=== PATIENT | female | born 1940 | race Caucasian/White ===

== ENCOUNTER → 2020-12-03 16:26 | Outpatient (CLI) | payer MEDICARE, OTHER, SELFPAY | PROVIDERS: Visit Provider Nurse Practitioner Adult Health | DX: R30.0 Dysuria (principal) | CPT/HCPCS: 87077; 87086; 87088; 87186 ==

== ENCOUNTER → 2021-04-22 17:47 | Outpatient (CLI) | payer MEDICARE, OTHER, SELFPAY | PROVIDERS: Referring Provider Nurse Practitioner Adult Health; Visit Provider Nurse Practitioner Adult Health | DX: R30.0 Dysuria (principal) | CPT/HCPCS: 87086 ==

== ENCOUNTER 2021-04-26 21:45 | Emergency (ER) | payer MEDICARE, OTHER, SELFPAY ==
[2021-04-26 21:48] VITALS: BP 137/79; PULSE 89; RESP 22; TEMP 37.2; O2SAT 94; BMI 22.8
[2021-04-26 21:52] VITALS: BP 137/79; PULSE 91; RESP 20; TEMP 37.2; O2SAT 94
[2021-04-26 22:10] VITALS: TEMP 37
--- NOTE | 2021-04-26 22:11 | RAD_ITS ---
STUDY: X-RAY CHEST REASON FOR EXAM: Female, 81 years old. Fever and cough TECHNIQUE: Single AP portable view of the chest. COMPARISON: None. FINDINGS: EKG leads overlie the chest Lungs are expanded with patchy interstitial and airspace opacifications in both lung lozano. Findings could be seen with Covid pneumonia, multifocal pneumonitis, or drug interaction/toxicity Normal size heart. Normal mediastinum and krystyna. Normal visualized pulmonary arteries. Normal visualized aortic arch and descending thoracic aorta. There are diffuse degenerative changes of the visualized thoracic spine. Old healed left rib fractures There is no demonstrated abnormality of the visualized soft tissue structures of the upper abdomen. RAD/Chest 1 View (Portable) IMPRESSION: Patchy interstitial and airspace opacifications in both lung lozano, differential as described. Follow-up recommended to ensure resolution Electronically Signed: Feliz Garvin MD at 23:00 EDT , Service support ,
--- NOTE | 2021-04-26 22:36 | EDS_ITS ---
HPI History of Present Illness Chief Complaint: Cough Informant: patient, family and EMS Narrative Narrative: 81-year-old female presents to the emergency room stating she does not feel well. Patient called the ambulance tonight after a neighbor came over and checked on her and felt that she had stuff in her lungs and 103 fever. She feels fatigued. She states that she has no other symptoms. Patient took Advil around 1900 hrs. She did not receive a Covid vaccination. PFSH PFSH Medical History (Updated 04/26/21 @ 23:[address] Matthew Sloan DO) Hypertension Home Medications amitriptyline 10 mg PO QHS 04/26/21 [History Last Taken Unknown] estradiol VAGINAL 04/26/21 [History Last Taken Unknown] metoprolol succinate 25 mg PO QHS 04/26/21 [History Last Taken Unknown] Allergy/AdvReac Type Severity Reaction Status Date / Time No Known Allergies Allergy Verified 04/26/21 21:48 Social History (Updated 04/26/21 @ 22:[address] Matthew Sloan DO) Smoking Status: Never smoker substance use type: does not use ROS ROS ED ROS Narrative Generalized fatigue Constitutional Constitutional ED: Reports fever(s); Denies chills or weight loss Eyes Eyes: Denies change in vision or diplopia ENT ENT ED: Denies ear pain, rhinorrhea or sore throat Cardiovascular Cardiovascular: Denies chest pain, orthopnea, palpitations or racing heartbeat Respiratory/Chest Respiratory/Chest: Reports cough; Denies dyspnea or orthopnea Gastrointestinal Gastrointestinal: Denies abdominal pain, diarrhea, nausea or vomiting Genitourinary Genitourinary ED: Denies dysuria, hematuria or urinary frequency Musculoskeletal Musculoskeletal: Denies arthralgias or myalgias Integumentary Denies abscess or rash Neurologic Neurologic: Denies headache(s) or weakness Psychiatric Psychiatric: Denies anxiety, depression, suicidal ideation or suicidal thoughts Endocrine Endocrinology: Denies polydipsia, polyphagia or polyuria Allergic/Immunologic Allergic/Immunologic ED: Denies mouth swelling, tongue swelling or urticaria EXAM Physical Exam Const Vital Signs: 04/26/21 21:48 04/26/21 21:52 04/26/21 22:10 Temperature 98.9 F 98.9 F 98.6 F Temperature Source Oral Oral Oral Pulse Rate 89 91 Respiratory Rate 22 H 20 H Respiratory Effort Normal Respiratory Depth Normal Respiratory Pattern Normal Blood Pressure 137/79 H 137/79 H Blood Pressure Mean 98 98 Pulse Ox 94 94 Oxygen Delivery Method Room Air Room Air Positive well nourished and well developed General Appearance ED: well developed HEENT Reports normocephalic, head/scalp atraumatic and moist mucous membranes Eyes PERRL and EOMs intact bilaterally Neck no lymphadenopathy, supple and no JVD Resp normal respiratory effort and clear to auscultation bilaterally Cardio regular rate, regular rhythm and no murmurs GI normal to inspection, nondistended, normoactive bowel sounds and non-tender Palpation: soft Back/Spine no CVA tenderness and normal ROM Extremity normal to inspection General Extremety ED: Negative for edema General Extremity: Negative for edema Neuro oriented x3 and CN's II-XII intact bilaterally Sensorium / Orientation: alert Motor Exam: strength 5/5 throughout Psych mental status grossly normal Mood & Affect: Negative for depressed or tearful Skin no rashes or lesions noted and no wounds MDM MDM MDM Narrative Medical decision making narrative: My interpretation of the chest x-ray shows mild multifocal infiltrates. Her white count is 5.3. CMP negative. Covid test is positive. Patient would qualify for monoclonal antibodies given her age and her hypertension. Patient did not want to get the vaccine because it was too new. She will weigh getting the antibodies over the weekend and discuss with [facility] child care attendant when she calls. Patient is satting 95% on room air and has not become hypoxic with exertion Lab Data Attestation: I reviewed the patient's lab results. Labs: Laboratory Results - last 24 hr 04/26/21 04/26/21 22:20 22:20 WBC 5.3 RBC 3.59 L Hgb 11.6 L Hct 33.1 L MCV 92.2 MCH 32.3 H MCHC 35.0 RDW Std Deviation 39.6 RDW Coeff of [place] 11.6 Plt Count 130 L MPV 9.0 Immature Gran % (Auto) 0.600 Neut % (Auto) 76.2 H Lymph % (Auto) 16.7 L [place] % (Auto) 5.9 Eos % (Auto) 0.4 Baso % (Auto) 0.2 Absolute Neuts (auto) 4.0 Absolute Lymphs (auto) 0.88 Nucleated RBC % 0 Sodium 130 L Potassium 3.5 Chloride 96 L Carbon Dioxide 26.0 Anion Gap 8 BUN 11 Creatinine 0.60 Estim Creat Clear Calc 36.41 Est GFR (MDRD) Af Amer 123 Est GFR (MDRD) Non-Af 101 BUN/Creatinine Ratio 18.2 Glucose 128 H Calcium 8.2 L Total Bilirubin 0.30 AST 28 ALT 17 Alkaline Phosphatase 81 Total Protein 6.5 Albumin 3.0 L Globulin 3.5 Albumin/Globulin Ratio 0.9 Radiography Diagnostic Testing: Clinical Impression(s) from Imaging Studies Chest X-Ray 04/26/21 22:11 IMPRESSION: Patchy interstitial and airspace opacifications in both lung lozano, differential as described. Follow-up recommended to ensure resolution Electronically Signed: Feliz Garvin MD at 23:00 EDT , Service support , Discharge Plan Triage Chief Complaint: Cough Other Complaint: Fever ED Provider: Matthew Sloan Dx/Rx/DC Orders Clinical Impression: COVID-19 Instructions: Coronavirus Disease 2019 (COVID-19): Caring for Yourself or Others Prescriptions: No Action amitriptyline 10 mg tablet 10 mg PO QHS RF: 0 metoprolol succinate 25 mg tablet extended release 24 hr 25 mg PO QHS RF: 0 estradiol 0.01 % (0.1 mg/gram) cream VAGINAL RF: 0 Primary Care Provider: Kristopher Garcia Referrals: Kristopher Garcia MD [Primary Care Provider] - As Needed Disposition Disposition: Home, Self Care
[2021-04-26 22:43] LABS: Absolute Lymphocyte Count 0.88 X10^3/uL (0.83-4.51); Basophil# 0.01 X10^3/uL; Basophil% 0.2 % (0-1); Eosinophil# 0.02 X10^3/uL; Eosinophils% 0.4 % (0-5); Hematocrit 33.1 % (37-47); Hemoglobin 11.6 g/dL (12.0-15.0); Lymphocyte # 0.88 X10^3/ul (0.83-4.51); Lymphocyte % 16.7 % (19-41); Mean Corpuscular Hgb 32.3 pg (27.0-32.0); Mean Corpuscular Volume 92.2 fL (81-99); Monocyte# 0.31 X10^3/uL; Monocyte% 5.9 % (0-10); NRBC Flagged by Analyzer 0 % (0-5); Neutrophil # 4.02 X10^3/uL (2.7-7.7); Neutrophil % 76.2 % (47-70); Platelet Count 130 K/mm3 (150-450); RBC Distribution Width CV 11.6 % (11.6-14.6); RBC Distribution Width SD 39.6 fl (35.1-43.9); Red Blood Count 3.59 M/mm3 (4.2-5.4); White Blood Count 5.3 K/mm3 (4.4-11.0)
[2021-04-26 22:49] LABS: ALB/GLOB Ratio 0.9 RATIO (0.9-2.4); AST(SGOT) 28 U/L (15-37); Alanine Aminotransfer ALT/SGPT 17 U/L (13-56); Alkaline Phosphatase 81 U/L (45-117); Anion Gap 8 (5-15); BUN 11 mg/dL (7-18); BUN/Creat Ratio 18.2 RATIO (10-20); Calcium,Total 8.2 mg/dL (8.5-10.1); Chloride 96 mmol/L (98-107); EST Glomerular Filtration Rate 101 mL/min (>60); Est Glom Filt Rate - Afr Amer 123 mL/min (>60); Estimated Creatinine Clearance 36.41 ml/min; Globulin 3.5 g/dL (2.2-4.2); Glucose 128 mg/dL (74-106); Potassium 3.5 mmol/L (3.5-5.1); Protein, Total 6.5 g/dL (6.4-8.2); Sodium Level 130 mmol/L (136-145)
[2021-04-26 23:22] VITALS: BP 133/81; RESP 18; O2SAT 95
== END 2021-04-26 23:22 | disposition home or self-care (01) ==
PROVIDERS: Emergency Provider Emergency Medicine; PCP Orthopaedic Surgery
DX: R50.9 Fever, unspecified (principal); I10 Essential (primary) hypertension; Z79.899 Other long term (current) drug therapy
CPT/HCPCS: 71045; 80053; 85025; 87426; 99285; A4216

== ENCOUNTER 2021-05-03 12:20 | Outpatient (CLI) | payer MEDICARE, OTHER, SELFPAY ==
[2021-05-03 12:58] VITALS: BP 116/65; PULSE 82; RESP 16; TEMP 36.6; O2SAT 98; BMI 22.1
[2021-05-03] MEDS: 0.9% Saline Lock 10 ML Syringe IV (13:01)
[2021-05-03 13:40] VITALS: BP 122/71; PULSE 88; RESP 16; TEMP 36.6; O2SAT 98
[2021-05-03 14:35] VITALS: BP 128/74; PULSE 92; RESP 18; TEMP 36.6; O2SAT 97
== END 2021-05-03 14:40 | disposition home or self-care (01) ==
LOC: MS3OUT 12:21 → MS3 12:22
PROVIDERS: PCP Orthopaedic Surgery; Visit Provider Nurse Practitioner Adult Health
DX: Z23 Encounter for immunization (principal); U07.1 COVID-19
CPT/HCPCS: J7050; M0243; A4216; Q0244

== ENCOUNTER 2021-09-08 17:02 | Outpatient (CLI) | payer MEDICARE, OTHER, SELFPAY | END 2021-09-08 23:59 | disposition home or self-care (01) | PROVIDERS: PCP Orthopaedic Surgery; Referring Provider Urology; Visit Provider Urology | DX: N30.10 Interstitial cystitis (chronic) without hematuria (principal) | CPT/HCPCS: 87086 ==

== ENCOUNTER 2021-09-16 16:23 | Outpatient (CLI) | payer MEDICARE, OTHER, SELFPAY ==
--- NOTE | 2021-09-16 16:05 | CYSPIN_PTH ---
PATIENT: JORI BRANNON LOC: [facility] U#:[id number] AGE/SX: 81/F ROOM: RE09/16/[address]: Dr. Corwin Rangel MD : 1940 BED: DIS: 09/16/2021 SPEC #: [id number] RECD: 09/17/21 08:00 STATUS: GABRIEL ESCUDERO #: [id number] KHANH: 09/16/21 16:[address]: Corwin Rangel DEPT: CYTOLOGY RECD BY: Cynthia Benedict ENTERED: 09/17/21 08:00 SP TYPE: CYSPIN FL OTHR DR: Dr. Kristopher Garcia MD Tissues: Urine Procedures: Pap Stain (control) Special Stain Group II Cytospin Fluid HEADER OPERATION: Not noted PRE-OP DIAGNOSIS: Gross hematuria R31.0 TISSUE SUBMITTED: Urine for cytology DIAGNOSIS CYTOLOGY Urine for cytology (cytospin): Rare atypical urothelial cells noted. Acute inflammation. See comment. SJ:ansley 09/17/2021 COMMENT Clinical correlation and appropriate follow up are necessary. 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 CYTOLOGY STUDY Slides are reviewed. CYTOLOGY GROSS Received is 50 ml of bright yellow fluid labeled with the patient's name and and designated per the requisition as urine. Submitted for cytology preparation. / ansley 09/16/2021 TC:5 CPT: 24852
[2021-09-16 16:44] LABS: Cytology, Body Fluid / CSF SEE PATHOLOGY REPORT
== END 2021-09-16 23:59 | disposition home or self-care (01) ==
LOC: LABSPEC 16:25
PROVIDERS: PCP Orthopaedic Surgery; Referring Provider Urology; Visit Provider Urology
DX: R31.0 Gross hematuria (principal)
CPT/HCPCS: 88108; 88313

== ENCOUNTER → 2022-10-27 | Outpatient (CLI) | payer MEDICARE, SELFPAY ==
--- NOTE | 2022-10-27 | CYSPIN_PTH ---
PATIENT: JORI BRANNON LOC: [facility] U#:[id number] AGE/SX: 82/F ROOM: RE10/27/[address]: Dr. Francie Aguilar MD : 1940 BED: DIS: 10/27/2022 SPEC #: [id number] RECD: 10/27/22 15:00 STATUS: GABRIEL ESCUDERO #: [id number] KHANH: 10/27/22 00:[address]: Francie Aguilar DEPT: CYTOLOGY RECD BY: Luke Parisi ENTERED: 10/28/22 10:50 SP TYPE: CYSPIN FL OTHR DR: Dr. Bhavik Hull MD Tissues: Urine Procedures: Pap Stain (control) Special Stain Group II Cytospin Fluid HEADER OPERATION: Not noted PRE-OP DIAGNOSIS: Gross hematuria TISSUE SUBMITTED: Urine for cytology DIAGNOSIS CYTOLOGY Urine for cytology (cytospin): Atypical urothelial cells noted ([facility] Sofía System Category III. Marked acute inflammation. See comment. SJ:ansley 10/28/2022 COMMENT Red blood cells are also noted. The Sofía System for urine cytology diagnostic categorization was used in the evaluation of this case. Please make reference to previous specimen [id number]) urine for cytology with diagnosis of rare atypical urothelial cells noted. Case has been reviewed in consultation with Dr. Huertas who concurs with the above diagnosis. IDC:AM CYTOLOGY STUDY Slides are reviewed. CYTOLOGY GROSS Received is 30 ml of hazy yellow fluid labeled with the patient's name and and designated per the requisition as urine. Submitted for cytology preparation. / ansley 10/28/2022 TC:5 CPT: 01464
[2022-10-27 17:49] LABS: Hematocrit 39.6 % (37-47); Hemoglobin 13.2 g/dL (12.0-15.0); Mean Corp Hgb Conc 33.3 g/dL (32-36); Mean Corpuscular Hgb 31.9 pg (27.0-32.0); Mean Corpuscular Volume 95.7 fL (81-99); Mean Platelet Vol. 8.9 fl (6.2-12.0); Platelet Count 298 K/mm3 (150-450); RBC Distribution Width CV 12.4 % (11.6-14.6); RBC Distribution Width SD 43.8 fl (35.1-43.9); Red Blood Count 4.14 M/mm3 (4.2-5.4); White Blood Count 7.8 K/mm3 (4.4-11.0)
[2022-10-27 17:55] LABS: Cytology, Body Fluid / CSF SEE PATHOLOGY REPORT
[2022-10-27 18:56] LABS: Anion Gap 8 (5-15); BUN 18 mg/dL (7-18); Calcium,Total 9.8 mg/dL (8.5-10.1); Chloride 104 mmol/L (98-107); Creatinine, Serum 0.62 mg/dL (0.55-1.02); EST Glomerular Filtration Rate 98 mL/min (>60); Est Glom Filt Rate - Afr Amer 119 mL/min (>60); Glucose 103 mg/dL (74-106); Potassium 4.1 mmol/L (3.5-5.1); Sodium Level 134 mmol/L (136-145)
== END | disposition home or self-care (01) ==
PROVIDERS: PCP Family Medicine; Referring Provider Urology; Visit Provider Urology
DX: R31.0 Gross hematuria (principal); N32.89 Other specified disorders of bladder
CPT/HCPCS: 36415; 80048; 85027; 88108; 88313

== ENCOUNTER → 2022-10-30 | Outpatient (CLI) | payer MEDICARE, SELFPAY ==
--- NOTE | 2022-10-30 15:00 | CT_ITS ---
HISTORY: GROSS HEMATURIA. TECHNIQUE: Helically acquired images were obtained of the abdomen and pelvis before and after the intravenous administration of 75 mL Isovue-370. A radiation dose optimization technique was used for this scan. 557 images. COMPARISON: None. FINDINGS: LOWER CHEST: Mild pulmonary fibrosis. BOWEL: Bowel nondilated. No periappendiceal inflammation. Moderate stool in the colon. Colonic diverticulosis without focal inflammatory change observed. PERITONEUM: No significant ascites. LIVER: No enhancing mass. GALLBLADDER/BILIARY TREE: Gallbladder present. SPLEEN/PANCREAS: Homogeneous and nonenlarged. KIDNEYS: No nephrolithiasis, hydronephrosis, or obstructing ureteral calculus. Normal enhancement of the kidneys. ADRENAL GLANDS: No nodules. VESSELS: Tortuous abdominal aorta without aneurysm or dissection. Mild atherosclerosis. PELVIC ORGANS: Mild bladder wall thickening with trace perivesical stranding. Surgical clips in the pelvis. Hysterectomy. Calcified serpiginous calcification or retained calcified material in the pelvis extending to the left . BONES: Degenerative change, osteopenia, and scoliosis. CT/CT Abd/Pelvis W/WO Contrast IMPRESSION: Mild bladder wall thickening, likely cystitis. Negative examination for renal stone. Colonic diverticulosis without acute diverticulitis. Electronically Signed: Jennifer Norton MD at 14:30 EDT ,
== END | disposition home or self-care (01) ==
PROVIDERS: PCP Family Medicine; Referring Provider Urology; Visit Provider Urology
DX: R31.0 Gross hematuria (principal); R39.82 Chronic bladder pain
CPT/HCPCS: 74178; Q9967; A4216

== ENCOUNTER 2022-11-20 09:36 | Day surgery (SDC) | payer MEDICARE, SELFPAY ==
[2022-11-20] VITALS (8 sets, daily range): BP systolic 131–145; BP diastolic 71–78; PULSE 60–66; RESP 16; TEMP 36.3–36.5; O2SAT 93–100; BMI 20.7
[2022-11-20] MEDS: Lactated Ringers 1,000 ML 15 ML IV (10:40)
--- NOTE | 2022-11-20 11:00 | BLA_PTH ---
PATIENT: JORI BRANNON LOC: [facility] [place] U#:[id number] AGE/SX: 82/F ROOM: RE11/20/[address]: Dr. Francie Aguilar MD : 1940 BED: DIS: 11/20/2022 SPEC #: [id number] RECD: 11/20/22 15:56 STATUS: GABRIEL RENely #: [id number] KHANH: 11/20/22 11:[address]: Francie Aguilar DEPT: SURGICAL PATHOLOGY RECD BY: Cynthia Benedict ENTERED: 11/23/22 10:06 SP TYPE: BLADDER BX OTHR DR: Dr. Bhavik Hull MD Tissues: Urinary bladder, NOS Procedures: Surgery Specimen Level IV HEADER OPERATION: Cysto, biopsy, Fulguration, bladder tumor PRE-OP DIAGNOSIS: Gross hematuria, chronic bladder pain, nocturia, vaginal atrophy TISSUE SUBMITTED: Bladder biopsy MICROSCOPIC DIAGNOSIS Bladder, biopsy: Moderate chronic inflammation and mild acute inflammation. Negative for malignancy. See comment. PATRICK:ansley 11/24/2022 COMMENT Minute fragments of smooth muscle are noted in the deeper portion of the biopsy specimen and may represent detrusor muscle. The specimen shows denuded epithelium in all three fragments. Correlation with clinical, cystoscopic findings and appropriate follow up are necessary. MICROSCOPIC DESCRIPTION Slides are reviewed. GROSS DESCRIPTION Received in fixative is one container labeled with the patient's name and designated bladder biopsy. The specimen consists of three irregular fragments of craig soft tissue that in aggregate measure 0.5 x 0.1 x 0.1 cm. The specimen is totally submitted in one cassette. / PATRICK:ansley 11/23/2022 TC:3 [facility] [place]: [id number]
[2022-11-20] MEDS: Cefazolin 2 GM in 0.9% Normal Saline 100 ML IV (11:09)
--- NOTE | 2022-11-20 12:02 | DCINST_ITS ---
Discharge Instructions Diet Discharge Diet: No restrictions Activity Discharge Activity: Return to Normal Activity Dressing / Incision Call your doctor if you observe: Fever of 101 or Higher, Inability to urinate and Inability to have a bowel movement Follow Up Care Please Follow Up With: Francie Aguilar MD When: Next week, call for appointment Test Results: Test results from this visit will be discussed in further detail at your follow- up appointment, if applicable. Discharge Plan Admission Attending Provider: Francie Aguilar Primary Care Provider: Bhavik Hull Discharge Orders/Prescriptions Prescriptions: New phenazopyridine [phenazopyridine] 100 mg tablet 100 mg PO TID PRN (Reason: pain) Qty: 30 0RF cephalexin [cephalexin] 500 mg capsule 500 mg PO Q12 3 Days Qty: 6 0RF Continued metoprolol succinate 25 mg tablet extended release 24 hr 25 mg PO QHS estradiol 0.01 % (0.1 mg/gram) cream 1 appful VAGINAL QODAY Label Comments: 1 FINGERTIP TOPICAL 2 NIGHTS PER WEEK APPLY TO URETHRA FOR UTI PREVENTION aspirin 81 mg Capsule 81 mg PO DAILY fluoxetine 20 mg capsule 20 mg PO QHS Label Comments: TAKE 1 CAPSULE BY MOUTH EVERY DAY geriatric [id number] Tablet 1 tab PO DAILY Referrals / Follow Up: Bhavik Hull MD [Primary Care Provider] - Disposition Disposition (needs filled in before D/C Order can be placed): Home, Self Care
--- NOTE | 2022-11-20 12:04 | OP.PCM_ITS ---
Report of Operation Date of Procedure: 11/20/22 Pre-Operative Diagnosis: Bladder lesion, small Post-Operative Diagnosis: Same Surgery/Procedure Performed:: Cystoscopy, bladder biopsy with fulguration Surgeon: Francie Aguilar Type of Anesthesia: MAC Specimen's removed: Bladder biopsies Description of Procedure: The patient is an 82-year-old female with ulcerations identified in the posterior bladder wall on cystoscopy in the office and now presents for biopsy with fulguration. Informed consent was obtained. The patient was taken to the operating room and placed on the operating room table. Anesthesia monitored the head, neck, airway, IV access and vital signs throughout the case. Once anesthesia was appropriate administered, the patient was placed into dorsol ithotomy position was prepped and draped in usual sterile fashion. Care was taken in positioning her secondary to severe right sided sciatica discomfort. At this time the cystoscope was inserted through the urethra under direct visualization into the urinary bladder. The posterior bladder wall ulceration area of erythema appeared to be in a healing phase, but still present. 3 small biopsies were taken and the area was fulgurated for hemostatic control and tissue treatment. After hemostatic control was obtained, the patient's bladder was emptied and the cystoscope was removed. She was awakened and taken to the recovery room in good condition. There were no complications during this procedure. Complications None Admit VTE Documentation VTE Mechan Device Prophylaxis: SCD's VTE Pharm Prophylaxis ordered?: No Reason prophylaxis not ordered:: Treatment Not Indicated
--- NOTE | 2022-11-20 12:09 | SUR.PHASEI ---
NO DRAINIAGE NOTED FROM URETHRA
== END 2022-11-20 14:10 | disposition home or self-care (01) ==
LOC: SDC 09:39 → AC 09:40
PROVIDERS: PCP Family Medicine; Referring Provider Urology; Visit Provider Urology
PROC: 0TBB8ZX Excision of Bladder, Via Natural or Artificial Opening Endoscopic, Diagnostic (ICD-10-PCS; CPT 52204; principal; 2022-11-20 10:50)
DX: N32.9 Bladder disorder, unspecified (principal); R31.0 Gross hematuria; R39.82 Chronic bladder pain; R35.1 Nocturia; N95.2 Postmenopausal atrophic vaginitis; I10 Essential (primary) hypertension; F32.A Depression, unspecified; F41.9 Anxiety disorder, unspecified; Z79.899 Other long term (current) drug therapy; Z79.82 Long term (current) use of aspirin
CPT/HCPCS: 52204; 00910; 88305; 93005; J7120; J2405

== ENCOUNTER 2022-11-23 05:43 | Emergency (ER) | payer MEDICARE, SELFPAY ==
[2022-11-23 05:45] VITALS: BP 122/86; PULSE 73; RESP 18; TEMP 36.6; O2SAT 93; BMI 20.9
--- NOTE | 2022-11-23 06:12 | ED.VIS.FEGU ---
HPI HPI - Female History of Present Illness Chief Complaint: Complaint Informant: patient and family Narrative Narrative: Presents with blood in urine noted this evening. No pain. No fevers. Status post cystoscopy with reported cauterization due to ulcers by Dr. Aguilar 3 days ago. Patient takes as needed Advil for sciatica. No anticoagulants. Unclear exactly why the cystoscopy. First time noticing gross hematuria in urine. PFSH PFSH Medical History Arthritis Back pain Cardiology follow-up encounter Depression History of stress test Hypertension Injury of head and neck Leg cramps Non-smoker Wears dentures Wears glasses Home Medications estradiol 0.01% (0.1 mg/gram) vaginal cream 1 appful vaginal QODAY 04/26/21 [History Last Taken Unknown] metoprolol succinate 25 mg tablet,extended release 24 hr 25 mg PO QHS 04/26/21 [History Last Taken Unknown] aspirin 81 mg capsule 81 mg PO DAILY 05/03/21 [History Last Taken Unknown] fluoxetine 20 mg capsule 20 mg PO QHS DEPRESSION 11/13/22 [History Last Taken Unknown] geriatric [id number]-chsv 1 tab PO DAILY SUPPLEMENT 11/13/22 [History Last Taken Unknown] cephalexin 500 mg capsule 500 mg PO Q12 post-operative 3 days #6 CAPSULES 11/20/22 [Rx Last Taken Unknown] phenazopyridine 100 mg tablet 100 mg PO TID PRN pain #30 TABLETS 11/20/22 [Rx Last Taken Unknown] cefuroxime axetil 500 mg tablet 500 mg PO BID #14 tabs 11/23/22 [Rx Last Taken Unknown] Allergy/AdvReac Type Severity Reaction Status Date / Time No Known Allergies Allergy Verified 11/20/22 10:07 Surgical History History of colonoscopy History of hysterectomy History of tonsillectomy Social History Smoking Status: Never smoker substance use type: does not use ROS ROS ED Constitutional Constitutional ED: Denies chills, fever(s) or sweats Eyes Eyes: Denies change in vision ENT ENT ED: Denies dysphagia or sore throat Cardiovascular Cardiovascular: Denies chest pain, leg edema, palpitations or racing heartbeat Respiratory/Chest Respiratory/Chest: Denies cough, dyspnea or dyspnea on exertion Gastrointestinal Gastrointestinal: Denies abdominal pain, diarrhea, nausea or vomiting Genitourinary Genitourinary ED: Reports hematuria; Denies dysuria or urinary frequency Musculoskeletal Musculoskeletal: Denies back pain, extremity pain or neck pain Integumentary Denies rash or wounds Neurologic Neurologic: Denies headache(s), paresthesias or weakness EXAM Physical Exam Const Vital Signs: 11/23/22 05:45 11/23/22 07:12 Temperature 97.9 F Temperature Source Temporal Pulse Rate 73 70 Respiratory Rate 18 18 Blood Pressure 122/86 H 132/71 H Blood Pressure Mean 98 Pulse Ox 93 Oxygen Delivery Method Room Air Positive well nourished and well developed General Appearance ED: well developed and NAD HEENT Reports moist mucous membranes normocephalic and atraumatic Eyes PERRL, EOMs intact bilaterally and conjunctivae normal General Eye ED: Yes normal appearance of both eyes Neck no lymphadenopathy and supple General: Negative for tenderness Chest Wall Chest: Negative for tenderness Resp normal respiratory effort and normal air movement Effort and Inspection: symmetric chest movement; Negative for respiratory distress Cardio regular rate, regular rhythm and no murmurs Peripheral Pulses: pulses 2+ throughout GI normal to inspection, nondistended, normoactive bowel sounds and non-tender GI Narrative: No suprapubic tenderness. No guarding or rebound Palpation: Negative for guarding or rebound tenderness present Back/Spine no CVA tenderness and no thoracic nor lumbar tenderness Extremity normal to inspection General Extremety ED: Negative for edema or tenderness General Extremity: Negative for edema Neuro oriented x3 and no sensory deficits noted Sensorium / Orientation: awake and alert Skin no rashes or lesions noted and no wounds MDM MDM MDM Narrative Medical decision making narrative: Interventions / MDM: Differential diagnosis: Hematuria status post biopsies, UTI Diagnosis considered but do not suspect: N/A My EKG interpretation: N/A Imaging independently reviewed and interpreted by myself: N/A External documents reviewed: Reviewing operative report this past Wednesday presented for cystoscopy with planned biopsies due to ulcers. 3 small biopsies were taken. Fulguration was performed. There was no complications. Test considered but not ordered:N/A ED course: Nontoxic nontender abdomen. Hematuria noted this evening. Labs normal hemoglobin 12.2 white count 7.1 creatinine 0.62 urine urine red and nature of blood and signs of infection culture sent. Per family and patient currently on empiric Keflex for 3 days 1 more dose left. We will switch her over to cefuroxime twice a day for 7 days. She will follow-up with her urologist. Return precautions. All questions were answered. Re-evaluation: stable Disposition discussed with patient/family/significant other: Patient and family Case discussed with consulting clinician: N/A Lab Data Labs: Laboratory Results - last 24 hr 11/23/22 11/23/22 11/23/22 05:57 06:20 06:20 WBC 7.1 RBC 3.83 L Hgb 12.2 Hct 35.8 L MCV 93.5 MCH 31.9 MCHC 34.1 RDW Std Deviation 42.8 RDW Coeff of [place] 12.4 Plt Count 269 MPV 8.2 Immature Gran % (Auto) 0.600 Neut % (Auto) 68.7 Lymph % (Auto) 19.0 [place] % (Auto) 7.6 Eos % (Auto) 3.7 Baso % (Auto) 0.4 Absolute Neuts (auto) 4.9 Absolute Lymphs (auto) 1.34 Nucleated RBC % 0 Sodium 135 L Potassium 4.6 Chloride 100 Carbon Dioxide 28.0 Anion Gap 7 BUN 17 Creatinine 0.62 Estim Creat Clear Calc 31.55 Est GFR (MDRD) Af Amer 119 Est GFR (MDRD) Non-Af 98 BUN/Creatinine Ratio 27.4 H Glucose 98 Calcium 9.3 Urine Color Red Urine Clarity Turbid Urine pH 8.0 Ur Specific [place] 1.015 Urine Protein 100 H Urine Glucose (UA) Normal Urine Ketones Negative Urine Occult Blood 250 H Urine Nitrite Negative Urine Bilirubin Negative Urine Urobilinogen Normal Ur Leukocyte Esterase 25 H Urine RBC > 100 SEEN Urine WBC 10-25 SEEN Ur Squamous Epith Cells 0-5 SEEN Urine Bacteria 2+ Urine Mucus 0 SEEN Discharge Plan Triage Chief Complaint: Complaint ED Provider: João Lizama Dx/Rx/DC Orders Clinical Impression: Acute UTI, Hematuria, Post-op bleeding Instructions: Urinary Tract Infections in Women Prescriptions: New cefuroxime axetil 500 mg tablet 500 mg PO BID Qty: 14 0RF No Action metoprolol succinate 25 mg tablet extended release 24 hr 25 mg PO QHS estradiol 0.01 % (0.1 mg/gram) cream 1 appful VAGINAL QODAY Label Comments: 1 FINGERTIP TOPICAL 2 NIGHTS PER WEEK APPLY TO URETHRA FOR UTI PREVENTION aspirin 81 mg Capsule 81 mg PO DAILY fluoxetine 20 mg capsule 20 mg PO QHS Label Comments: TAKE 1 CAPSULE BY MOUTH EVERY DAY geriatric [id number] Tablet 1 tab PO DAILY phenazopyridine [phenazopyridine] 100 mg tablet 100 mg PO TID PRN (Reason: pain) Qty: 30 0RF cephalexin [cephalexin] 500 mg capsule 500 mg PO Q12 3 Days Qty: 6 0RF Primary Care Provider: Bhavik Hull Referrals: Francie Aguilar MD [Med Staff - Active Staff] - 3-5 Days Bhavik Hull MD [Primary Care Provider] - Activity Restrictions/Additional Instructions: Stop the cephalexin. Take cefuroxime as prescribed. Follow-up with Dr. Aguilar. Return if worsening symptoms. Disposition Disposition: Home, Self Care Discharge Date/Time: 11/23/22 07:13
[2022-11-23 06:17] LABS: Mucous, Urine 0 SEEN /hpf (<or=2+)
[2022-11-23 06:29] LABS: Absolute Lymphocyte Count 1.34 X10^3/uL (0.83-4.51); Absolute Neutrophil Count 4.9 X10^3/uL (2.0-7.7); Basophil# 0.03 X10^3/uL; Basophil% 0.4 % (0-1); Eosinophil# 0.26 X10^3/uL; Eosinophils% 3.7 % (0-5); Hematocrit 35.8 % (37-47); Hemoglobin 12.2 g/dL (12.0-15.0); Lymphocyte # 1.34 X10^3/ul (0.83-4.51); Mean Corp Hgb Conc 34.1 g/dL (32-36); Mean Corpuscular Hgb 31.9 pg (27.0-32.0); Mean Corpuscular Volume 93.5 fL (81-99); Mean Platelet Vol. 8.2 fl (6.2-12.0); Monocyte# 0.54 X10^3/uL; Monocyte% 7.6 % (0-10); NRBC Flagged by Analyzer 0 % (0-5); Neutrophil # 4.85 X10^3/uL (2.7-7.7); Neutrophil % 68.7 % (47-70); Platelet Count 269 K/mm3 (150-450); RBC Distribution Width CV 12.4 % (11.6-14.6); RBC Distribution Width SD 42.8 fl (35.1-43.9); Red Blood Count 3.83 M/mm3 (4.2-5.4); White Blood Count 7.1 K/mm3 (4.4-11.0)
[2022-11-23 06:31] LABS: Color, Urine Red (Yellow); Glucose, Dipstick Normal (Normal); Ketone-Dipstick Negative (Negative); Leukocyte Esterase-Dipstick 25 /ul (Negative); Nitrite-Dipstick Negative (Negative); Occult Blood-Urine 250 /ul (Negative); Protein-Dipstick 100 mg/dl (Negative); Specific Gravity, Urine 1.015 (1.002-1.030); Urine Bilirubin Dipstick Negative (Negative); Urine Clarity Turbid (Clear); Urine Urobilinogen Normal (Normal)
[2022-11-23 06:34] LABS: Bacteria 2+ /hpf (None Seen); Red Blood Cells-Urine > 100 SEEN /hpf (0-5); Squamous Epithelial Cells - UA 0-5 SEEN /hpf (5-10); White Blood Cells 10-25 SEEN /hpf (0-5)
[2022-11-23 06:46] LABS: Anion Gap 7 (5-15); BUN 17 mg/dL (7-18); BUN/Creat Ratio 27.4 RATIO (10-20); Calcium,Total 9.3 mg/dL (8.5-10.1); Chloride 100 mmol/L (98-107); Creatinine, Serum 0.62 mg/dL (0.55-1.02); EST Glomerular Filtration Rate 98 mL/min (>60); Est Glom Filt Rate - Afr Amer 119 mL/min (>60); Estimated Creatinine Clearance 31.55 ml/min; Glucose 98 mg/dL (74-106); Potassium 4.6 mmol/L (3.5-5.1); Sodium Level 135 mmol/L (136-145)
[2022-11-23 07:12] VITALS: BP 132/71; PULSE 70; RESP 18
== END 2022-11-23 07:13 | disposition home or self-care (01) ==
PROVIDERS: Emergency Provider Emergency Medicine; PCP Family Medicine; Visit Provider Emergency Medicine
DX: N39.0 Urinary tract infection, site not specified (principal); R31.9 Hematuria, unspecified
CPT/HCPCS: 80048; 81001; 85025; 87086; 99282; A4216

== ENCOUNTER 2023-10-11 15:02 | Outpatient (RCR) | payer MEDICARE, SELFPAY ==
--- NOTE | 2023-10-11 18:48 | HP.PTREVAL ---
Re-Evaluation Intro: Dr. Francie Aguilar MD, It has been my pleasure to treat JORI BRANNON over the last 1 visits for HIGH TONE PELVIC PAIN. Please see the progress note below for an update on the physical therapy plan of care! Plan Plan Plan: MANUAL PF THERAPY FOR TRIGGER POINT RELEASE, STM, AND LENGTHENING/RELAXATION OF THE PELVIC FLOOR. URINARY URGE AND FREQUENCY TRAINING EDUCATION. HEALTHY BLADDER HABIT EDUCATION. CORE AND HÉCTOR LE ROM, STRETCHING AND STRENGTHENING TO PROMOTE RELAXATION OF THE PELVIC FLOOR. TRAINING IN PROPER INTRA-ABDOMINAL CAVITY PRESSURE MGMT WITH ADL'S. HEP INSTRUCTION. Goals Goals Goal 1:: DECREASE C/O PELVIC PAIN BY AT LEAST 50% TO EASE ADL'S. Goal Time Frame: 8-12 Weeks Goal 2:: PATIENT WILL BE ABLE TO INITIATE URINATION WITHOUT DIFFICULTY AT LEAST 75% OF THE TIME Goal Time Frame: 8-12 Weeks Goal 3:: NORMALIZE VOIDING PATTERNS INCLUDNG THE NEED TO URINATE 0-2 TIMES AT NIGHT Goal Time Frame: 6-8 Weeks Goal 4:: DEVELOP HEALTHY FLUID INTAKE HABITS WITH FLUID INTAKE OF ? BODY WEIGHT IN OUNCES PER DAY AND 2/3 BEING WATER. Goal Time Frame: 2-4 Weeks Goal 5:: PATIENT WILL BE INDEP WITH A HEP/HOME INSTRUCTIONS TO PROMOTE RELAXATION OF THE PELVIC FLOOR FOR CONTINUED IMPROVEMENT ONCE FORMAL PHYSICAL THERAPY CONCLUDES. Goal Time Frame: 8-12 Weeks Anticipated Interventions Anticipated Interventions Patient/Client Instruction: Educate patient on: Condition, Plan of Care and Risk Factors For the Purpose of:: To improve self management Therapeutic Exercise to Include: Strength training, Flexibilty training, Neuromotor development and Relaxation training For the Purpose of:: To decrease pain, To improve muscle performance and motor function, To increase tolerance to activity/condition/position, To improve ability of physical actions for home/community/work/leisure, To decrease soft tissue restriction and To increase flexibility/ROM Manual Therapy Techniques to Include: Trigger point massage and Soft tissue mobilization For the Purpose of:: To decrease pain, To improve muscle performance and motor function and To decrease soft tissue restriction Re-Evaluation Ending Re-evaluation ending: Please do not hesitate to contact me at [phone] by phone or if you have questions or concerns regarding this new plan of care! Sincerely, Dayami Roth, PT, Cert MDT
--- NOTE | 2023-10-11 18:48 | HP.PTREVAL ---
Re-Evaluation Intro: Dr. Francie Aguilar MD, It has been my pleasure to treat JORI BRNANON over the last 1 visits for HIGH TONE PELVIC PAIN. Please see the progress note below for an update on the physical therapy plan of care! Plan Plan Plan: MANUAL PF THERAPY FOR TRIGGER POINT RELEASE, STM, AND LENGTHENING/RELAXATION OF THE PELVIC FLOOR. URINARY URGE AND FREQUENCY TRAINING EDUCATION. HEALTHY BLADDER HABIT EDUCATION. CORE AND HÉCTOR LE ROM, STRETCHING AND STRENGTHENING TO PROMOTE RELAXATION OF THE PELVIC FLOOR. TRAINING IN PROPER INTRA-ABDOMINAL CAVITY PRESSURE MGMT WITH ADL'S. HEP INSTRUCTION. Goals Goals Goal 1:: DECREASE C/O PELVIC PAIN BY AT LEAST 50% TO EASE ADL'S. Goal Time Frame: 8-12 Weeks Goal 2:: PATIENT WILL BE ABLE TO INITIATE URINATION WITHOUT DIFFICULTY AT LEAST 75% OF THE TIME Goal Time Frame: 8-12 Weeks Goal 3:: NORMALIZE VOIDING PATTERNS INCLUDNG THE NEED TO URINATE 0-2 TIMES AT NIGHT Goal Time Frame: 6-8 Weeks Goal 4:: DEVELOP HEALTHY FLUID INTAKE HABITS WITH FLUID INTAKE OF ? BODY WEIGHT IN OUNCES PER DAY AND 2/3 BEING WATER. Goal Time Frame: 2-4 Weeks Goal 5:: PATIENT WILL BE INDEP WITH A HEP/HOME INSTRUCTIONS TO PROMOTE RELAXATION OF THE PELVIC FLOOR FOR CONTINUED IMPROVEMENT ONCE FORMAL PHYSICAL THERAPY CONCLUDES. Goal Time Frame: 8-12 Weeks Anticipated Interventions Anticipated Interventions Patient/Client Instruction: Educate patient on: Condition, Plan of Care and Risk Factors For the Purpose of:: To improve self management Therapeutic Exercise to Include: Strength training, Flexibilty training, Neuromotor development and Relaxation training For the Purpose of:: To decrease pain, To improve muscle performance and motor function, To increase tolerance to activity/condition/position, To improve ability of physical actions for home/community/work/leisure, To decrease soft tissue restriction and To increase flexibility/ROM Manual Therapy Techniques to Include: Trigger point massage and Soft tissue mobilization For the Purpose of:: To decrease pain, To improve muscle performance and motor function and To decrease soft tissue restriction Re-Evaluation Ending Re-evaluation ending: Please do not hesitate to contact me at [phone] by phone or if you have questions or concerns regarding this new plan of care! Sincerely, Dayami Roth, PT, Cert MDT
--- NOTE | 2023-10-26 11:32 | HP.PTEVAL_ITS ---
Patient's Visit Information Visit Information Visit Information: JORI BRANNON is a 83 year old F referred to Physical Therapy by Dr. Francie Gilman MD with a diagnosis of HIGH TONE PELVIC PAIN. Date of Evaluation: 10/11/23 Physical Therapist: Dayami Roth PT, Cert MDT Visit Plan Frequency: 1x/Week Duration: 2-4 Months Plan: MANUAL PF THERAPY FOR TRIGGER POINT RELEASE, STM, AND LENGTHENING/RELAXATI ON OF THE PELVIC FLOOR. URINARY URGE AND FREQUENCY TRAINING EDUCATION. HEALTHY BLADDER HABIT EDUCATION. CORE AND HÉCTOR LE ROM, STRETCHING AND STRENGTHENING TO PROMOTE RELAXATION OF THE PELVIC FLOOR. TRAINING IN PROPER INTRA-ABDOMINAL CAVITY PRESSURE MGMT WITH ADL'S. HEP INSTRUCTION. Subjective Subjective: Work/Leisure: RETIRED. 17 YEAR OLD [employer] IS LIVING WITH HER AND HELPS WITH YARD AND CAR TYPE TASKS. Present symptoms: I AM HAVING PROBLEMS WITH PRESSURE MAKING IT HARD TO SIT. SHE REPORTS THE PRESSURE IS IN THE VAGINAL AREA. SHE REPORTS THAT IT FELT LIKE SOMETHING WAS STICKING OUT AT FIRST BUT THAT LEFT NOW IT FEELS LIKE PRESSURE. SOMETIMES IT HURTS WHEN I WALK TOO. SHE ALSO REPORTS SHE GETS PAIN WHEN SHE GETS THE URGE TO URINATE, IT IS HARD TO INITIATE URINATION BUT ONCE SHE STARTS URINATING SHE GETS RELIEF AND THE PAIN IS BETTER FOR AWHILE. PATIENT DENIES BACK AND HIP PAIN. Present since: SHE REPORTS THIS HAS BEEN GOING ON FOR ABOUT 3 YEARS NOW. Pain Scale: WORST 10/10 Currently: NO PAIN RIGHT NOW - WENT TO THE BATHROOM ON THE WAY BACK TO THE TREATMENT ROOM. HAD PAIN PRIOR TO URINATING. Is it getting better, worse or staying the same: STARTED GETTING BETTING WHEN STARTED USING SUPPOSITORIES PRESCRIBED BY DR. GILMAN ABOUT 2 WKS AGO. TYLONOL HELPS TOO. Commenced as a result of: NO APPARENT REASON Symptoms at onset: FEELING LIKE BLADDER WAS FALLING DOWN. Disturbed sleep: GETTING UP TO URINATE ABOUT 6 TIMES A NIGHT. Previous history/Previous treatment: OVER THE LAST 4 YEARS PATIENT REPORTS HAVING ULCERS ON HER BLADDER BURNED AND TRYING THE SUPPOSITORIES IN ADDITION TO TRYING DIFFERENT TYPES OF PILLS. SHE STATES SHE CURRENTLY ISN'T TAKING ANY PILLS BECAUSE THEY DIDN'T HELP. Gait: NO FALLS. NO AD'S. Bowel Dysfunction: DENIES BOWEL INCONTINENCE. UI - PATIENT DENIES Accidents: NO Unexplained weight loss: NO Imaging: NONE RECENT. Objective Objective: THIS PATIENT AMBULATES INDEP'LY INTO PT WITHOUT ANY AD'S OR LOB. SHE IS INDEP WITH TRANSFERS SIT TO STAND, STAND TO SIT, SIT TO SUPINE AND SUPINE TO SIT. SHE IS A GOOD HISTORIAN AND PLEASANT AND COOPERATIVE TO WORK WITH. SHE FOLLOWS COMMANDS WELL. SHE IS NOT TENDER WITH PALPATION OF EXTERNAL GENITALIA. INTERNAL MANUAL VAGINAL TESTING REVEALS HIGH TONE PELVIC FLOOR MUSCULATURE ESPECIALLY LEVATOR ANI HÉCTOR. SHE HAS MULTIPLE TRIGGER POINTS. SHE IS HOWEVER ABLE TO CONTRACT THE PELVIC FLOOR WITH 3/5 STRENGTH X 5 SEC X 3 WITHOUT C/O PAIN. WITH CUEING SHE IS ABLE TO PARTIALLY RELAX THE PELVIC FLOOR AND TRIGGER POINT RELEASE IS PARTIALLY SUCCESSFUL TODAY DURING TESTING. ROM: HÉCTOR HIP TIGHTNESS ALL PLANES STRENGTH: HIPS 4/5, KNEES 5/5, ANKLES 5/5. Core strength: POOR FUNCTIONAL SCREEN: Incontinence Impact Questionnaire Score: 9 Urogenital Distress Inventory Score: 10 Goals Goal 1:: DECREASE C/O PELVIC PAIN BY AT LEAST 50% TO EASE ADL'S. Goal Time Frame: 8-12 Weeks Goal 2:: PATIENT WILL BE ABLE TO INITIATE URINATION WITHOUT DIFFICULTY AT LEAST 75% OF THE TIME Goal Time Frame: 8-12 Weeks Goal 3:: NORMALIZE VOIDING PATTERNS INCLUDNG THE NEED TO URINATE 0-2 TIMES AT NIGHT Goal Time Frame: 6-8 Weeks Goal 4:: DEVELOP HEALTHY FLUID INTAKE HABITS WITH FLUID INTAKE OF ? BODY WEIGHT IN OUNCES PER DAY AND 2/3 BEING WATER. Goal Time Frame: 2-4 Weeks Goal 5:: PATIENT WILL BE INDEP WITH A HEP/HOME INSTRUCTIONS TO PROMOTE RELAXATION OF THE PELVIC FLOOR FOR CONTINUED IMPROVEMENT ONCE FORMAL PHYSICAL THERAPY CONCLUDES. Goal Time Frame: 8-12 Weeks Rehabilitation Potential Physical Therapy Diagnosis: THIS PATIENT PRESENTS TO PT WITH C/O CHRONIC PELVIC PAIN AND HIGH TONE PELVIC FLOOR. Rehabilitation Potential: Good Anticipated Interventions Patient/Client Instruction: Educate patient on: Condition, Plan of Care and Risk Factors For the Purpose of:: To improve self management Therapeutic Exercise to Include: Strength training, Flexibilty training, Neuromotor development and Relaxation training For the Purpose of:: To decrease pain, To improve muscle performance and motor function, To increase tolerance to activity/condition/position, To improve ability of physical actions for home/community/work/leisure, To decrease soft tissue restriction and To increase flexibility/ROM Manual Therapy Techniques to Include: Trigger point massage and Soft tissue mobilization For the Purpose of:: To decrease pain, To improve muscle performance and motor function and To decrease soft tissue restriction Text: Thank you for the opportunity to evaluate your patient. For Medicare and Medicare HMO plans, please review the plan of care and approve it. It will need to be FAXED BACK to us at [phone] for Medicare purposes. For Medicare only, by signing this I certify the plan of care. Please let me know if there are questions or concerns regarding this plan of care. Physician Signature: Date:
--- NOTE | 2023-11-02 10:54 | HP.PT.NRP ---
Patient Information Patient Information: JORI BRANNON was seen in my office for initial evaluation on 10/11/23. The following Plan of Care was established for this patient: POC Established Initial Frequency: 1x/Week Initial Duration: 2-4 Months Anticipated Interventions Patient/Client Instruction: Educate patient on: Condition, Plan of Care and Risk Factors For the Purpose of:: To improve self management Therapeutic Exercise to Include: Strength training, Flexibilty training, Neuromotor development and Relaxation training For the Purpose of:: To decrease pain, To improve muscle performance and motor function, To increase tolerance to activity/condition/position, To improve ability of physical actions for home/community/work/leisure, To decrease soft tissue restriction and To increase flexibility/ROM Manual Therapy Techniques to Include: Trigger point massage and Soft tissue mobilization For the Purpose of:: To decrease pain, To improve muscle performance and motor function and To decrease soft tissue restriction Last Seen Last Seen: This patient was last seen in our office . Pertinent comments regarding their Physical therapy will appear below: This patient was seen for initial evaluation and then apparently cancelled all naheed'ts due to having ulcers on bladder and needing to have surgery. Will D/C chart at this time. At this point I will be discontinuing this patient from physical therapy. I would be happy to see this patient again in the future if found appropriate by the physician. Thank you! Dayami Roth PT, Cert MDT
== END 2023-10-11 19:00 | disposition home or self-care (01) ==
LOC: PT 15:02
PROVIDERS: PCP Family Medicine; Referring Provider Urology; Visit Provider Urology
DX: R10.2 Pelvic and perineal pain (principal)
CPT/HCPCS: 97162

== ENCOUNTER 2023-11-11 06:49 | Day surgery (SDC) | payer MEDICARE, SELFPAY ==
[2023-11-09 16:44] LABS: Absolute Lymphocyte Count 2.58 X10^3/uL (0.83-4.51); Absolute Neutrophil Count 5.7 X10^3/uL (2.0-7.7); Basophil# 0.04 X10^3/uL; Basophil% 0.4 % (0-1); Eosinophil# 0.56 X10^3/uL; Eosinophils% 5.8 % (0-5); Hematocrit 36.1 % (37-47); Hemoglobin 12.2 g/dL (12.0-15.0); Lymphocyte # 2.58 X10^3/ul (0.83-4.51); Lymphocyte % 26.8 % (19-41); Mean Corp Hgb Conc 33.8 g/dL (32-36); Mean Corpuscular Hgb 31.7 pg (27.0-32.0); Mean Corpuscular Volume 93.8 fL (81-99); Mean Platelet Vol. 8.7 fl (6.2-12.0); Monocyte# 0.68 X10^3/uL; Monocyte% 7.1 % (0-10); NRBC Flagged by Analyzer 0 % (0-5); Neutrophil # 5.73 X10^3/uL (2.7-7.7); Neutrophil % 59.7 % (47-70); Platelet Count 267 K/mm3 (150-450); RBC Distribution Width SD 44.6 fl (35.1-43.9); Red Blood Count 3.85 M/mm3 (4.2-5.4); White Blood Count 9.6 K/mm3 (4.4-11.0)
[2023-11-09 17:13] LABS: Anion Gap 6 (5-15); BUN 20 mg/dL (7-18); BUN/Creat Ratio 30.9 RATIO (10-20); Calcium,Total 9.3 mg/dL (8.5-10.1); Chloride 106 mmol/L (98-107); Creatinine, Serum 0.65 mg/dL (0.55-1.02); EST Glomerular Filtration Rate 93 mL/min (>60); Est Glom Filt Rate - Afr Amer 113 mL/min (>60); Glucose 93 mg/dL (74-106); Sodium Level 136 mmol/L (136-145)
[2023-11-11] VITALS (7 sets, daily range): BP systolic 106–149; BP diastolic 67–92; PULSE 60–69; RESP 16; TEMP 36.5–36.9; O2SAT 95–100; BMI 20.6
[2023-11-11] MEDS: Lactated Ringers 1,000 ML 15 ML IV (07:21)
[2023-11-11] MEDS: Cefazolin 2 GM in 0.9% Normal Saline (100mL Bag) 100 ML IV (08:10)
--- NOTE | 2023-11-11 09:27 | DCINST_ITS ---
Discharge Instructions Diet Discharge Diet: No restrictions Activity Discharge Activity: Return to Normal Activity Dressing / Incision Call your doctor if you observe: Fever of 101 or Higher, Inability to urinate and Inability to have a bowel movement Follow Up Care Please Follow Up With: Francie Aguilar MD When: One week. Test Results: Test results from this visit will be discussed in further detail at your follow- up appointment, if applicable. Discharge Plan Admission Attending Provider: Francie Aguilar Primary Care Provider: Bhavik Hull Discharge Orders/Prescriptions Prescriptions: Continued metoprolol succinate 25 mg tablet extended release 24 hr 25 mg PO QHS estradiol 0.01 % (0.1 mg/gram) cream 1 appful VAGINAL PRN Patient Comments: 1 FINGERTIP TOPICAL 2 NIGHTS PER WEEK APPLY TO URETHRA FOR UTI PREVENTION aspirin 81 mg Capsule 81 mg PO DAILY fluoxetine 20 mg capsule 20 mg PO DAILY Patient Comments: TAKE 1 CAPSULE BY MOUTH EVERY DAY geriatric [id number] Tablet 1 tab PO DAILY cephalexin 500 mg capsule 500 mg PO Q12 3 Days Qty: 6 0RF Referrals / Follow Up: Bhavik Hull MD [Primary Care Provider] - Disposition Disposition (needs filled in before D/C Order can be placed): Home, Self Care
--- NOTE | 2023-11-11 09:28 | PCM.OPRPT ---
Report of Operation Date of Procedure: 11/11/23 Pre-Operative Diagnosis: Interstitial cystitis with Hunner's ulcers Post-Operative Diagnosis: same Surgery/Procedure Performed:: cystoscopy with fulguration Hunner's Ulcers Surgeon: Francie Aguilar Type of Anesthesia: MAC Specimen's removed: None Description of Procedure: The patient is an 83-year-old female with interstitial cystitis who has had Hunner's ulcers in the past. Her last cystoscopy with fulguration and bladder biopsy was approximately 1 year ago. She has had recurrence of her pain and now presents for treatment of her recurrent ulcerations. Informed consent was obtained. The patient was taken to the operating room and placed on the operating room table. Anesthesia monitored the head, neck, airway, IV access and vital signs throughout the case. Once anesthesia was appropriately administered, she was placed into dorsolithotomy position was prepped and draped in usual sterile fashion. The cystoscope was inserted through the urethra under direct visualization into the urinary bladder. There were 4 separate areas of ulceration identified. There is no area of mass seen. The ulcer in the posterior midline was approximately 1.5 cm in size and was the largest area. It was covered in calcifications likely secondary to the inflammation there. Using biopsy forceps these calcifications were removed. The patient then began to bleed. The ulcerations were cauterized for tissue treatment and hemostatic control. The bladder mucosa was very thin and she was bleeding from each of her ulcerative sites. After cautery was completed, the decision was made not to pursue a bladder biopsy today. The patient's bladder was then emptied and the cystoscope was removed. She was awakened and taken to the recovery room in good condition. There were no complications from the procedure. Grafts/Implants Used: none Complications none Admit VTE Documentation VTE Present on Admission: Yes VTE Mechan Device Prophylaxis: SCD's VTE Pharm Prophylaxis ordered?: No Reason prophylaxis not ordered:: Treatment Not Indicated
== END 2023-11-11 10:37 | disposition home or self-care (01) ==
LOC: SDC 06:50 → AC 06:50
PROVIDERS: PCP Family Medicine; Referring Provider Family Medicine; Visit Provider Urology
PROC: 0TBB8ZX Excision of Bladder, Via Natural or Artificial Opening Endoscopic, Diagnostic (ICD-10-PCS; CPT 52214; principal; 2023-11-11 08:10)
DX: N30.10 Interstitial cystitis (chronic) without hematuria (principal); R35.1 Nocturia; N95.2 Postmenopausal atrophic vaginitis; N32.81 Overactive bladder; F41.9 Anxiety disorder, unspecified; I10 Essential (primary) hypertension; Z79.899 Other long term (current) drug therapy; Z79.82 Long term (current) use of aspirin
CPT/HCPCS: 52214; 00910; 36415; 80048; 85025; J7120; J2405